=== PATIENT | female | born 1945 | race Caucasian/White ===

== ENCOUNTER 2020-07-18 18:16 | Inpatient (IN) | payer MEDICARE, BC ==
[2020-07-18] VITALS (7 sets, daily range): BP systolic 143–208; BP diastolic 77–114
[~2020-07-18] VITALS: Ht 165.1 cm; Wt 88.5 kg
[2020-07-18 18:39] LABS: BASOPHILS 0.3 % (0-2); EOSINOPHILS 1.7 % (0-7); HEMATOCRIT 42.1 % (36.0-48.0); HEMOGLOBIN 14.1 g/dL (12-16); IMMATURE GRANULOCYTES 0.4 % (0-5); LYMPHOCYTE ABS# 6.86 10x3/uL (1.18-3.74); LYMPHOCYTES 49.3 % (15-50); MCH 29.6 pg (26.0-34.0); MCHC 33.5 g/dL (31.0-37.0); MCV 88.3 fL (80.0-100.0); MEAN PLATELET VOLUME 8.5 fL (7.4-10.4); MONOCYTES 7.1 % (2-11); NEUTROPHIL ABS# 5.73 10x3/uL (1.56-6.13); NEUTROPHILS 41.2 % (40-80); PLATELET COUNT 391 10x3/uL (130-400); RBC 4.77 10x6/uL (4.00-5.40); RDW 14.1 % (11.5-14.5); WBC 13.9 10x3/uL (4.8-10.8)
[2020-07-18 18:47] LABS: ANION GAP 17.1 mmol/L (8-16); CALCIUM 9.6 mg/dL (8.5-10.1); CARBON DIOXIDE 23.6 mmol/L (21.0-32.0); CREATININE - SERUM 1.2 mg/dL (0.6-1.3); POTASSIUM - SERUM 3.7 mmol/L (3.5-5.1)
[2020-07-18 18:49] LABS: APTT 26.1 SECONDS (22.8-39.4); INR 1.08 (0.85-1.17)
[2020-07-18 18:52] LABS: ALBUMIN 4.1 g/dL (3.4-5.0); BILIRUBIN - TOTAL 0.37 mg/dL (0.2-1.3); PROTEIN - SERUM 7.1 g/dL (6.4-8.2)
[2020-07-18 19:45] LABS: BILIRUBIN NEGATIVE (NEGATIVE); KETONE NEGATIVE (NEGATIVE); NITRITE NEGATIVE (NEGATIVE); UROBILINOGEN NORMAL mg/dL (< 2)
--- NOTE | 2020-07-18 20:40 | NUR ---
PT COULD NOT HAVE SEDATION IN ER DUE TO EATING PRIOR TO VISIT. ORTHO COULD NOT GET LEFT SHOULDER BACK IN PLACE, STATES THEY WILL TAKE PT TO THE OR
[2020-07-18 21:07] LABS: CKMB 1.4 U/L (0.0-3.6); CREATINE KINASE 115 UL (21-215); MAGNESIUM - SERUM 1.9 mg/dL (1.8-2.4)
[2020-07-18 21:14] LABS: TROPONIN-I < 0.017 ng/mL (0.000-0.060)
[2020-07-19] VITALS (12 sets, daily range): BP systolic 132–157; BP diastolic 67–91; BMI 32.5
[2020-07-19] MEDS ORDERED: NORVASC2.5 MG PO (00:31)
[2020-07-19] MEDS ORDERED: NORMODYNE / TR100 MG PO (00:32)
[2020-07-19] MEDS ORDERED: CRESTOR5 MG PO (00:32)
[2020-07-19] MEDS ORDERED: ALDACTONE25 MG PO (00:32)
[2020-07-19] MEDS ORDERED: CO Q-10100 MG PO (00:33)
[2020-07-19] MEDS ORDERED: ASCORBIC ACID500 MG PO (00:33)
[2020-07-19] MEDS ORDERED: VITAMIN B-12100 MCG PO (00:34)
[2020-07-19] MEDS ORDERED: ASPIRIN81 MG PO (00:34)
[2020-07-19] MEDS ORDERED: CALCIUM 500 +1 EAC3 PO (00:35)
--- NOTE | 2020-07-19 02:50 | NUR ---
PATIENT RESTING COMFORTABLY ON CPAP. IMMOBILIZER IN PLACE ATTATCHED TO BOTH ARMS. HANDS PROPPED UP ON PILLOWS FOR SUPPORT. ICE PACK APPLIED TO LEFT SHOULDER. VITALS STABLE. WILL CONTINUE TO MONITOR. AT BEDSIDE.
[2020-07-19 05:24] LABS: BASOPHILS 0.1 % (0-2); EOSINOPHILS 0 % (0-7); HEMATOCRIT 39.3 % (36.0-48.0); HEMOGLOBIN 12.8 g/dL (12-16); IMMATURE GRANULOCYTES 0.3 % (0-5); LYMPHOCYTE ABS# 1.97 10x3/uL (1.18-3.74); LYMPHOCYTES 13.1 % (15-50); MCH 29.1 pg (26.0-34.0); MCHC 32.6 g/dL (31.0-37.0); MCV 89.3 fL (80.0-100.0); MONOCYTES 8.9 % (2-11); NEUTROPHIL ABS# 11.68 10x3/uL (1.56-6.13); NEUTROPHILS 77.6 % (40-80); PLATELET COUNT 343 10x3/uL (130-400); RDW 14.3 % (11.5-14.5)
[2020-07-19 05:51] LABS: ALBUMIN 3.7 g/dL (3.4-5.0); BILIRUBIN - TOTAL 0.42 mg/dL (0.2-1.3); CALCIUM 8.9 mg/dL (8.5-10.1); CARBON DIOXIDE 24.4 mmol/L (21.0-32.0); MAGNESIUM - SERUM 1.9 mg/dL (1.8-2.4); PROTEIN - SERUM 6.2 g/dL (6.4-8.2)
[2020-07-19 05:53] LABS: ANION GAP 16.2 mmol/L (8-16); POTASSIUM - SERUM 4.6 mmol/L (3.5-5.1)
--- NOTE | 2020-07-19 07:30 | NUR ---
AWAKE AND ALERT. ORIENTED X3. NO C/O AT THIS TIME. LUNGS ARE CLEAR BILATERALLY, NO COUGH NOTED. ENCOURAGED TO USE IS INSTRUCTED. SKIN IS INTACT WITHOUT REDNESS. IMMOBILYZER IN PLACE TO BOTH ARMS. IV TO LEFT AC IS PATENT WTIHOUT REDNESS AT INSERTION SITE. PURE WICK IN PLACE WITH CLEAR YELLOW URINE.
--- NOTE | 2020-07-19 09:00 | NUR ---
FEED BREAKFAST PER STAFF. ATE ALL OF MEAL. REFUSED COLACE. DENIES NEEDS.
--- NOTE | 2020-07-19 12:30 | NUR ---
HERE AND ASSISTED WITH MEAL. DENIES NEEDS.
--- NOTE | 2020-07-19 14:05 | OP ---
PATIENT NAME: JEFFERY SANTOS MEDICAL RECORD: [id number] :45 LOCATION:[facility] [id number] ADMISSION DATE:07/18/20 SURGEON: ALEJANDRA FLORES DO DATE OF OPERATION: 07/18/2020 PROCEDURE PERFORMED: Bilateral shoulder reduction. PREOPERATIVE DIAGNOSIS: Bilateral shoulder dislocations. POSTOPERATIVE DIAGNOSIS: Bilateral shoulder dislocations. INDICATIONS: Ms. Jeffery Santos is a 74-year-old female who fell today, she said onto her left side, she fell forward and somehow dislocated both of her shoulders that has never happened before. She was brought by EMS to the ER and was seen to have bilateral shoulder dislocations. We barely tried an attempt in the ER due to her n.p.o. status. She was given some fentanyl and was not adequate. I pulled on her arm. She did not tolerate it. After we went through that and knowing that she would need heavy sedation, we decided to take her to the OR where she could be intubated to protect her airway. We had talked to her and her about it and informed him of the risks including infection, recurrent instability, rotator cuff tear, fracture, damage to nerves or vessels in the area, continued pain, need for surgery, possible open reduction and they signed a consent. SURGEON: Alejandra Flores DO DESCRIPTION OF PROCEDURE: The patient was taken to the operative suite, laid in supine position, given general anesthetic and intubated. Timeout was performed. Everyone was in agreeance with the correct side, site, patient and procedure. I then began with the left shoulder in an attempt to reduce it, felt to go in. I then went to the right and repeated the process, pulling traction externally rotating the arm, popped in. X-ray was then brought in on the left, did not appear to be reduced. I then did another reduction and it did reduce. An axillary view was done to ensure it was reduced and it was internal and external rotation, it was stable. I then repeated imaging on the right, got an axillary view to ensure that it was reduced and it was. She was then placed in an immobilizer with both arms attached to waistband. She was awakened and taken to recovery in stable condition. BLOOD LOSS: None. COMPLICATIONS: None. TRANSINT:[id number] Voice Confirmation ID: [id number] DOCUMENT ID: [id number] ALEJANDRA FLORES DO at 1405 CC: [id number] DICTATION DATE: 07/18/202314 BATTER DEPOSITOR: 07/19/20 0231 ADM IN [place] [id number] [place] [id number]
--- NOTE | 2020-07-19 18:35 | NUR ---
ATE ALL OF SUPPER. DENIES NEEDS. NO CHANGES NOTED.
[2020-07-20 06:59] LABS: BASOPHILS 0.2 % (0-2); EOSINOPHILS 1.8 % (0-7); HEMOGLOBIN 12.3 g/dL (12-16); IMMATURE GRANULOCYTES 0.3 % (0-5); LYMPHOCYTE ABS# 2.83 10x3/uL (1.18-3.74); LYMPHOCYTES 23.5 % (15-50); MCH 29.2 pg (26.0-34.0); MCHC 32.4 g/dL (31.0-37.0); MCV 90.3 fL (80.0-100.0); MEAN PLATELET VOLUME 8.7 fL (7.4-10.4); MONOCYTES 10.6 % (2-11); NEUTROPHIL ABS# 7.65 10x3/uL (1.56-6.13); NEUTROPHILS 63.6 % (40-80); PLATELET COUNT 333 10x3/uL (130-400); RBC 4.21 10x6/uL (4.00-5.40); RDW 14.6 % (11.5-14.5)
[2020-07-20 07:16] LABS: ALBUMIN 3.2 g/dL (3.4-5.0); ANION GAP 12.6 mmol/L (8-16); BILIRUBIN - TOTAL 0.43 mg/dL (0.2-1.3); CALCIUM 8.7 mg/dL (8.5-10.1); CARBON DIOXIDE 25.6 mmol/L (21.0-32.0); CREATININE - SERUM 0.8 mg/dL (0.6-1.3); MAGNESIUM - SERUM 1.9 mg/dL (1.8-2.4); POTASSIUM - SERUM 4.2 mmol/L (3.5-5.1); PROTEIN - SERUM 5.9 g/dL (6.4-8.2)
[2020-07-20 08:52] VITALS: BP 147/90
--- NOTE | 2020-07-20 09:29 | NUR ---
ASKED PATIENT IF SHE WANTED PAIN MEDICATION WITH MORNING MEDS, PATIENT DECLINED AND STATED SHE WILL TAKE IV PAIN MEDICATION BEFORE GOING FOR MRI OF HER SHOULDER. NO IV PAIN MEDIATIONS SEEN ON CHART, SENT DR FLORES MESSAGE. CONTINUE WITH PLAN OF CARE
--- NOTE | 2020-07-20 10:32 | NUR ---
SPOKE TO DR FLORES IN REGARDS TO PATIENT IV PAIN MEDICATION FOR MRI. RECIEVED ORDER FOR ONE TIME DOSE WHEN PATIENT GOES TO MRI. CONTINUE WITH PLAN OF CARE
--- NOTE | 2020-07-20 11:38 | NUR ---
I have reviewed this patient and I concur with the Shift Assessment completed by the Licensed Practical Nurse today this shift.
[2020-07-20 12:48] VITALS: BP 150/66
[2020-07-20 13:31] VITALS: Ht 165.1 cm; Wt 88.5 kg
[2020-07-20 16:51] VITALS: BP 146/86
[2020-07-20 20:00] VITALS: BP 140/74
[2020-07-21 04:00] VITALS: BP 153/88
[2020-07-21 07:09] LABS: BASOPHILS 0.2 % (0-2); EOSINOPHILS 2.1 % (0-7); HEMATOCRIT 37.3 % (36.0-48.0); IMMATURE GRANULOCYTES 0.5 % (0-5); LYMPHOCYTES 26.2 % (15-50); MCH 29.1 pg (26.0-34.0); MCHC 32.2 g/dL (31.0-37.0); MCV 90.3 fL (80.0-100.0); MEAN PLATELET VOLUME 8.9 fL (7.4-10.4); MONOCYTES 9.2 % (2-11); NEUTROPHIL ABS# 7.79 10x3/uL (1.56-6.13); NEUTROPHILS 61.8 % (40-80); PLATELET COUNT 355 10x3/uL (130-400); RBC 4.13 10x6/uL (4.00-5.40); RDW 14.4 % (11.5-14.5); WBC 12.6 10x3/uL (4.8-10.8)
[2020-07-21 07:28] LABS: ANION GAP 13.2 mmol/L (8-16); BILIRUBIN - TOTAL 0.46 mg/dL (0.2-1.3); CALCIUM 8.9 mg/dL (8.5-10.1); CARBON DIOXIDE 26.9 mmol/L (21.0-32.0); CREATININE - SERUM 0.9 mg/dL (0.6-1.3); POTASSIUM - SERUM 4.1 mmol/L (3.5-5.1); PROTEIN - SERUM 6.2 g/dL (6.4-8.2)
[2020-07-21 09:03] VITALS: BP 134/74
[2020-07-21 13:38] VITALS: BP 128/66
--- NOTE | 2020-07-21 14:00 | NUR ---
PATIENT WALKING WITH PHYSICAL THERAPY, STATED SHE IS NOT HURTING WHEN SHE GETS UP ONLY WHEN SHE IS LAYING STILL IN SAME SPOT. ASSISTED PATIENTTO SITTING POSITION TO GET PILLOW CASES OVER CHUCKS. SPOUSE AT BEDSIDE, NO NEEDS VOICED, PATIENT STATED POSSIBLE SHOULDER SURGERY ON MONDAY. CONTINUE WITH PLAN OF CARE
[2020-07-21 17:56] VITALS: BP 121/66
[2020-07-21 20:00] VITALS: BP 122/76
[2020-07-22 04:00] VITALS: BP 150/83
[2020-07-22 07:18] LABS: BASOPHILS 0.2 % (0-2); EOSINOPHILS 2.1 % (0-7); HEMATOCRIT 37.4 % (36.0-48.0); HEMOGLOBIN 12.2 g/dL (12-16); IMMATURE GRANULOCYTES 0.6 % (0-5); LYMPHOCYTE ABS# 4.56 10x3/uL (1.18-3.74); LYMPHOCYTES 37.5 % (15-50); MCH 29.3 pg (26.0-34.0); MCHC 32.6 g/dL (31.0-37.0); MCV 89.9 fL (80.0-100.0); MEAN PLATELET VOLUME 8.8 fL (7.4-10.4); NEUTROPHIL ABS# 6.29 10x3/uL (1.56-6.13); NEUTROPHILS 51.6 % (40-80); PLATELET COUNT 362 10x3/uL (130-400); RBC 4.16 10x6/uL (4.00-5.40); RDW 14.4 % (11.5-14.5); WBC 12.2 10x3/uL (4.8-10.8)
--- NOTE | 2020-07-22 07:33 | NUR ---
SLEEPING WITHOUT NEEDS. PATIENT IS WITHOUT SIGNS OF DISTRESS.CALL LIGHT IN REACH.
[2020-07-22 07:40] LABS: ANION GAP 14.4 mmol/L (8-16); BILIRUBIN - TOTAL 0.67 mg/dL (0.2-1.3); CALCIUM 8.9 mg/dL (8.5-10.1); CARBON DIOXIDE 25.8 mmol/L (21.0-32.0); CREATININE - SERUM 0.8 mg/dL (0.6-1.3); MAGNESIUM - SERUM 2.1 mg/dL (1.8-2.4); POTASSIUM - SERUM 4.2 mmol/L (3.5-5.1); PROTEIN - SERUM 5.8 g/dL (6.4-8.2)
--- NOTE | 2020-07-22 08:07 | NUR ---
ASSISTED PROGRAM PROFESSIONAL IN PULLING PATIENT UP IN BED, ASKED PATIENT TO ASSIST WELL, ENCOURAGED HER TO TRY AND FEED HERSELF THIS MORNING WE ARE TRYING TO GET HER STRONGER AND PATIENT STATED ORTHO WANTED HER TO TRY AND PERFORM ADLS HERSELF. CONRAD WITH PLAN OF CARE
[2020-07-22 09:23] VITALS: BP 141/84
[2020-07-22 13:28] VITALS: BP 118/68
--- NOTE | 2020-07-22 15:09 | NUR ---
OT NOTE: PT REQUIRED CGA FOR CHAIR TO BED TSF. PT REQUIRED MIN A FOR SIT TO SUPINE. PT REQUIRED TOTAL A FOR POSITIONING IN BED. PT REQUIRED TOTAL A FOR BUE POSITIONING. PT COMPLETED GENTLE BUE PROM TOLERATED. [id number] ROSIE WILLIAM COTA
--- NOTE | 2020-07-22 16:09 | NUR ---
PATIENT STATED THAT WHEN SHE WORKED WITH OCCUPATIONAL THERAPY TODAY THE PAIN PILL ADMINISTERED BARELY TOUCHED HER PAIN, PAIN MEDICATION ADMINISTERED WAS ONLY THE 5MG, TOLD PATIENT THAT TOMORROW WHEN OCCUPATIONAL THERAPY COMES I WILL MAKE SURE TO GIVE THE HIGHER DOSAGE. SPOUSE AT BEDSIDE, NO OTHER NEEDS VOICED AT THIS TIME. CONTINUE WITH PLAN OF CARE
[2020-07-22 17:47] VITALS: BP 138/68
[2020-07-22 20:00] VITALS: BP 122/76
[2020-07-22 22:40] LABS: SARS-CoV-2 ANTIGEN NEGATIVE- SARS-COV-2 (NEGATIVE)
--- NOTE | 2020-07-23 01:36 | NUR ---
I have reviewed this patient and I concur with the Shift Assessment completed by the Licensed Practical Nurse today this shift.
[2020-07-23 04:00] VITALS: BP 180/80
[2020-07-23 06:23] LABS: BASOPHILS 0.2 % (0-2); EOSINOPHILS 1.9 % (0-7); HEMATOCRIT 37.6 % (36.0-48.0); HEMOGLOBIN 12.3 g/dL (12-16); IMMATURE GRANULOCYTES 0.7 % (0-5); LYMPHOCYTE ABS# 3.18 10x3/uL (1.18-3.74); LYMPHOCYTES 25.9 % (15-50); MCH 29.1 pg (26.0-34.0); MCHC 32.7 g/dL (31.0-37.0); MCV 89.1 fL (80.0-100.0); MEAN PLATELET VOLUME 8.5 fL (7.4-10.4); NEUTROPHIL ABS# 7.78 10x3/uL (1.56-6.13); NEUTROPHILS 63.3 % (40-80); PLATELET COUNT 398 10x3/uL (130-400); RBC 4.22 10x6/uL (4.00-5.40); RDW 14.3 % (11.5-14.5); WBC 12.3 10x3/uL (4.8-10.8)
--- NOTE | 2020-07-23 06:24 | NUR ---
PT GRAIN MILL PRODUCTS INSPECTOR LIGHT HELPED TO BESIDE COMODE PT HAD BOWEL MOVEMENT SMALL AMOUNT. CHANGE BEDSHEETS AND REPOSITION BED FOR PT. WILL CONT TO MONITOR
[2020-07-23 06:40] LABS: ALBUMIN 3.3 g/dL (3.4-5.0); ALKALINE PHOSPHATASE 58 U/L (30-120); ALT (SGPT) 32 U/L (10-68); BILIRUBIN - TOTAL 0.73 mg/dL (0.2-1.3); CALC OSMOLALITY 283 mosm/kg (275-300); CARBON DIOXIDE 27.2 mmol/L (21.0-32.0); CHLORIDE - SERUM 104 mmol/L (98-107); CREATININE - SERUM 0.7 mg/dL (0.6-1.3); GLUCOSE 106 mg/dL (74-106); MAGNESIUM - SERUM 2.2 mg/dL (1.8-2.4); POTASSIUM - SERUM 4.7 mmol/L (3.5-5.1); PROTEIN - SERUM 6.1 g/dL (6.4-8.2); SODIUM 141 mmol/L (136-145); UREA NITROGEN 21 mg/dL (7-18); eGFR NON AFRICAN AMERICAN 87 mL/min (90-120)
--- NOTE | 2020-07-23 07:10 | NUR ---
SLEEPING WITH EYES CLOSED. PATIENT IS WITHOUT DISTRESS.
[2020-07-23 09:18] VITALS: BP 138/81
[2020-07-23] MEDS ORDERED: FLORAJEN DIGES1 EACH PO (10:16)
[2020-07-23] MEDS ORDERED: PROTONIX40 MG PO (10:16)
[2020-07-23] MEDS ORDERED: COLACE100 MG PO (10:16)
--- NOTE | 2020-07-23 12:01 | MORECARE ---
CASE MANAGEMENT DISCHARGE SUMMARY PATIENT: ELISABET SANTOS UNIT: [id number] ADM DATE: 07/19/20 AGE: 74 : 45 SEX: F ROOM/BED: D.[facility] AUTHOR: CHEN,DOC PHYSICIAN: REFERRING PHYSICIAN: REID MUNOZ MD DATE OF SERVICE: 07/23/20 Case Management Discharge Planning Summary COMMENTS ENTERED DATE: 07/23/20 11:59 CT COMMENT TYPE: Discharge Planning REVIEWER: Karina Solis PATIENT WILL BE DISCHARGED TO [facility] TODAY TO A SKILLED BED THEY WILL TRANSPORT HER AND PICK HER UP AT 1300 AND THE NURSE WILL CALL REPORT IMM SERVED AND MASSIEL OBTAINED DCP REVIEW SUMMARY ANTICIPATED D/C DATE: EXPECTED LOS : CASE STATUS: DCP Initiated INITIAL REVIEW: 07/18/2020 INITIAL REVIEWER: Karina Solis FINAL DISCHARGE DISPOSITION: 03 : Discharged/Trans to SNF with Medicare Certification in Anticipation of Skilled Care FINAL REVIEWER: FINAL REVIEW DATE: DCP [facility] Questions & Answers QUESTION: ANSWER : PROVIDER NETWORKING REVIEW DATE: 07/22/2020 SERVICE TYPE: [facility] Facility REVIEWER: April Graf PATIENT: ELISABET SANTOS ENCOUNTER: [id number] MEDICAL RECORD#: [id number] ADMISSION DATE: 07/19/2020 DISCHARGE DATE: ATTENDING MD: REID BOWSER : AGE: 74 MARITAL STATUS: M DC PLAN ID: [id number] FACILITY: [facility] PRINTED ON: 07/23/20 12:01 CT All edits/amendments must be made on the electronic document DICTATION DATE: 07/23/201200 FORM SETTER HELPER: DM 07/23/20 120 RPT#: [id number] DC DATE: STATUS: ADM IN [facility] [address] [place] [address] END OF REPORT
[2020-07-23] MEDS ORDERED: HYDROCODON-ACE1 EAC7 PO (12:34)
--- NOTE | 2020-07-23 12:40 | NUR ---
REPORT TO VALERIE AT [facility].
--- NOTE | 2020-07-23 13:16 | NUR ---
LEFT UNIT VIA WHEELCHAIR FOR TRANSPORT TO [facility]
--- NOTE | 2020-07-23 13:23 | MORECARE ---
CASE MANAGEMENT DISCHARGE SUMMARY PATIENT: ELISABET SANTOS UNIT: [id number] ADM DATE: 07/19/20 AGE: 74 : 45 SEX: F ROOM/BED: D.[facility] AUTHOR: CHEN,DOC PHYSICIAN: REFERRING PHYSICIAN: REID MUNOZ MD DATE OF SERVICE: 07/23/20 Case Management Discharge Planning Summary COMMENTS ENTERED DATE: 07/23/20 11:59 CT COMMENT TYPE: Discharge Planning REVIEWER: Karina Solis PATIENT WILL BE DISCHARGED TO [facility] TODAY TO A SKILLED BED THEY WILL TRANSPORT HER AND PICK HER UP AT 1300 AND THE NURSE WILL CALL REPORT IMM SERVED AND MASSIEL OBTAINED DCP REVIEW SUMMARY ANTICIPATED D/C DATE: EXPECTED LOS : CASE STATUS: DCP Initiated INITIAL REVIEW: 07/18/2020 INITIAL REVIEWER: Karina Solis FINAL DISCHARGE DISPOSITION: 03 : Discharged/Trans to SNF with Medicare Certification in Anticipation of Skilled Care FINAL REVIEWER: FINAL REVIEW DATE: DCP [facility] Questions & Answers QUESTION: ANSWER : PROVIDER NETWORKING REVIEW DATE: 07/22/2020 SERVICE TYPE: [facility] Facility REVIEWER: April Graf PATIENT: ELISABET SANTOS ENCOUNTER: [id number] MEDICAL RECORD#: [id number] ADMISSION DATE: 07/19/2020 DISCHARGE DATE: 07/23/2020 ATTENDING MD: REID BOWSER : AGE: 74 MARITAL STATUS: M DC PLAN ID: [id number] FACILITY: [facility] PRINTED ON: 07/23/20 13:23 CT All edits/amendments must be made on the electronic document DICTATION DATE: 07/23/20 132 DEBURRING AND TOOLING MACHINE OPERATOR: DM 07/23/20 1323 RPT#: [id number] DC DATE:07/23/20 STATUS: DIS IN [facility] [address] [place] [address] END OF REPORT
--- NOTE | 2020-07-23 17:16 | NUR ---
OT NOTE: PT REQUIRED CGA FOR ADL MOB TASKS. PT COMPLETED BED MOBILITY WITH MAX A FOR POSITIONING AND SCOOTING. PT COMPLETED BUE GENTLE PROM TOLERATED. PT EXHIBITED MORE PROM IN LUE. PT STATED THAT RUE IS PAINFUL WITH MOVEMENT. [id number] THANK YOU,HEATHER OLIVER
--- NOTE | 2020-07-24 10:06 | MORECARE ---
CASE MANAGEMENT DISCHARGE SUMMARY PATIENT: ELISABET SANTOS UNIT: [id number] ADM DATE: 07/19/20 AGE: 74 : 45 SEX: F ROOM/BED: D.[facility] AUTHOR: CHEN,DOC PHYSICIAN: REFERRING PHYSICIAN: REID MUNOZ MD DATE OF SERVICE: 07/24/20 Case Management Discharge Planning Summary COMMENTS ENTERED DATE: 07/23/20 11:59 CT COMMENT TYPE: Discharge Planning REVIEWER: Karina Solis PATIENT WILL BE DISCHARGED TO [facility] TODAY TO A SKILLED BED THEY WILL TRANSPORT HER AND PICK HER UP AT 1300 AND THE NURSE WILL CALL REPORT IMM SERVED AND MASSIEL OBTAINED DCP REVIEW SUMMARY ANTICIPATED D/C DATE: EXPECTED LOS : CASE STATUS: DCP Initiated INITIAL REVIEW: 07/18/2020 INITIAL REVIEWER: Karina Solis FINAL DISCHARGE DISPOSITION: 03 : Discharged/Trans to SNF with Medicare Certification in Anticipation of Skilled Care FINAL REVIEWER: FINAL REVIEW DATE: DCP [facility] Questions & Answers QUESTION: ANSWER : PROVIDER NETWORKING REVIEW DATE: 07/22/2020 [facility] REVIEWER: April Graf PATIENT: ELISABET SANTOS ENCOUNTER: [id number] MEDICAL RECORD#: [id number] ADMISSION DATE: 07/19/2020 DISCHARGE DATE: 07/23/2020 ATTENDING MD: REID BOWSER : AGE: 74 MARITAL STATUS: M DC PLAN ID: [id number] FACILITY: [facility] PRINTED ON: 07/24/20 10:06 CT All edits/amendments must be made on the electronic document DICTATION DATE: 07/24/20 1006 US CUSTOMS AND BORDER OFFICER: DM 07/24/20 1006 RPT#: [id number] DC DATE:07/23/20 STATUS: DIS IN [facility] [address] [place] [address] END OF REPORT
== END 2020-07-23 13:17 | DRG 563 ==
LOC: D.ER 18:16 → D.MS 21:22 → OBSVTIME 21:22 → D.MS 07-19 13:18
PROVIDERS: Family Medicine; Orthopaedic Surgery; ADMIT Emergency Medicine; ATTEND Emergency Medicine
PROC: 0RSJXZZ Reposition Right Shoulder Joint, External Approach (ICD-10-PCS; 2020-07-18)
PROC: 0RSKXZZ Reposition Left Shoulder Joint, External Approach (ICD-10-PCS; principal; 2020-07-18 22:45)
DX: S43.005A Unspecified dislocation of left shoulder joint, initial encounter (principal); W18.30XA Fall on same level, unspecified, initial encounter; S43.004A Unspecified dislocation of right shoulder joint, initial encounter; S09.90XA Unspecified injury of head, initial encounter; S29.012A Strain of muscle and tendon of back wall of thorax, initial encounter; S16.1XXA Strain of muscle, fascia and tendon at neck level, initial encounter; I10 Essential (primary) hypertension; E78.5 Hyperlipidemia, unspecified; D72.829 Elevated white blood cell count, unspecified; M75.121 Complete rotator cuff tear or rupture of right shoulder, not specified as traumatic

== ENCOUNTER → 2020-08-04 18:02 | Outpatient (CLI) | payer MEDICARE, BC ==
[2020-07-20 13:31] VITALS: BMI 32.4
[~2020-08-04 18:02] MED LIST: ALDACTONE25 MG PO; ASCORBIC ACID500 MG PO; ASPIRIN81 MG PO; CALCIUM 500 +1 EAC3 PO; CO Q-10100 MG PO; COLACE100 MG PO; CRESTOR5 MG PO; FLORAJEN DIGES1 EACH PO; HYDROCODON-ACE1 EAC7 PO; NORMODYNE / TR100 MG PO; NORVASC2.5 MG PO; PROTONIX40 MG PO; VITAMIN B-12100 MCG PO
== END | disposition home or self-care (01) ==
LOC: D.LABREF 18:02
PROVIDERS: ATTEND Orthopaedic Surgery
DX: M19.011 Primary osteoarthritis, right shoulder (principal)

== ENCOUNTER 2020-08-15 15:01 | Emergency (ER) | payer MEDICARE, BC ==
[~2020-08-15] VITALS: Ht 165.1 cm; Wt 83.2 kg
[2020-08-15 15:05] VITALS: Ht 165.1 cm; Wt 83.2 kg
[2020-08-15 16:02] LABS: BASOPHILS 0.8 % (0-2); EOSINOPHILS 1.3 % (0-7); HEMATOCRIT 41.4 % (36.0-48.0); HEMOGLOBIN 13.7 g/dL (12-16); LYMPHOCYTES 23.9 % (15-50); MCH 29.3 pg (26.0-34.0); MCV 88.7 fL (80.0-100.0); MEAN PLATELET VOLUME 6.2 fL (7.4-10.4); MONOCYTES 5.8 % (2-11); NEUTROPHILS 68.2 % (40-80); RBC 4.66 10x6/uL (4.00-5.40); RDW 14.3 % (11.5-14.5)
[2020-08-15 16:03] LABS: PLATELET COUNT 479 10x3/uL (130-400)
[2020-08-15 16:14] LABS: CALC OSMOLALITY 283 mosm/kg (275-300); CARBON DIOXIDE 25.1 mmol/L (21.0-32.0); CHLORIDE - SERUM 103 mmol/L (98-107); CREATININE - SERUM 0.9 mg/dL (0.6-1.3); GLUCOSE 123 mg/dL (74-106); POTASSIUM - SERUM 3.7 mmol/L (3.5-5.1); SODIUM 140 mmol/L (136-145); UREA NITROGEN 24 mg/dL (7-18); eGFR NON AFRICAN AMERICAN 65 mL/min (90-120)
[2020-08-15 16:18] LABS: ALBUMIN 4.2 g/dL (3.4-5.0); ALKALINE PHOSPHATASE 93 U/L (30-120); ALT (SGPT) 29 U/L (10-68); BILIRUBIN - TOTAL 0.35 mg/dL (0.2-1.3); PROTEIN - SERUM 7.6 g/dL (6.4-8.2)
[2020-08-15 16:30] LABS: TROPONIN-I < 0.017 ng/mL (0.000-0.060)
[2020-08-15] MEDS ORDERED: LISINOPRIL-HCT1 EAC4 PO ×2 (16:42→18:45)
[2020-08-15 17:25] LABS: BILIRUBIN NEGATIVE (NEGATIVE); KETONE NEGATIVE (NEGATIVE); NITRITE NEGATIVE (NEGATIVE); UROBILINOGEN NORMAL mg/dL (< 2)
[2020-08-15 19:43] VITALS: BP 166/95
== END 2020-08-15 19:30 | disposition home or self-care (01) ==
LOC: D.ER 15:01
PROVIDERS: Family Medicine
DX: I10 Essential (primary) hypertension (principal)